=== PATIENT | female | born 1995 | race Hispanic/Latino ===

== ENCOUNTER 2021-08-17 17:47 | Inpatient (IN) | payer SELFPAY ==
[~2021-08-17] VITALS: Ht 157.5 cm; Wt 64.4 kg
[2021-08-17] MEDS ORDERED: KETOROLAC TROMETHAMINE 30 MG/ML VIAL IV STA (18:03)
[2021-08-17] MEDS ORDERED: KETOROLAC TROMETHAMINE 30 MG/ML VIAL ONE (18:15)
[2021-08-17 18:22] LABS: BASOPHILS # (AUTO) 0.1 (0.0-0.1); BASOPHILS % 0.3 % (0.0-1.0); EOSINOPHILS % 0.3 % (0.0-6.0); HEMATOCRIT 37.2 % (34.2-44.1); HEMOGLOBIN 12.3 g/dL (12.0-16.0); LYMPHOCYTES % 6.7 % (18.0-39.1); MEAN CORPUSCULAR HEMOGLOBIN 29.6 pg (28-32); MEAN CORPUSCULAR HGB CONC 33.1 g/dL (31-35); MEAN CORPUSCULAR VOLUME 89.6 fL (81-99); MONOCYTES # (AUTO) 0.7 (0.2-0.8); MONOCYTES % 4.5 % (4.4-11.3); NEUTROPHILS # (AUTO) 13.2 (2.1-6.9); PLATELET COUNT 337 x10e3/uL (140-360); RED BLOOD COUNT 4.15 x10e6/uL (3.6-5.1); RED CELL DISTRIBUTION WIDTH 12.7 % (11.7-14.4)
[2021-08-17 18:27] LABS: CLARITY,URINE CLEAR (CLEAR); COLOR,URINE YELLOW (YELLOW)
[2021-08-17 18:28] LABS: KETONES,URINE 2+ (NEGATIVE); LEUKOCYTE ESTERASE ,URINE NEGATIVE (NEGATIVE); NITRITE,URINE NEGATIVE (NEGATIVE); PROTEIN,URINE DIPSTICK NEGATIVE (NEGATIVE); URINE UROBILINOGEN 0.2 mg/dL (0.2 - 1)
[2021-08-17 18:38] LABS: ALBUMIN 4.1 g/dL (3.5-5.0); ALBUMIN/GLOBULIN RATIO 1.2 (0.8-2.0); ANION GAP 10.3 mmol/L (8-16); CALCIUM 8.7 mg/dL (8.4-10.2); CREATININE, SERUM 0.66 mg/dL (0.57-1.11); POTASSIUM 3.3 mmol/L (3.5-5.1)
[2021-08-17 18:42] LABS: BACTERIA,URINE FEW /HPF; EPITHELIAL CELLS,URINE FEW /LPF; RBC,URINE 0-5 /HPF (0-5); WBC,URINE (MAN) 0-5 /HPF (0-5)
[2021-08-17] MEDS ORDERED: PIPERACILLIN/TAZOBACTAM 3.375 GM in SODIUM CHLORIDE 0.9% 50ML 50 ML IV STA (18:42)
[2021-08-17] MEDS ORDERED: IOPAMIDOL 370 MG/ML 200 ML INFUS..BTL INJ ONE (19:03)
[2021-08-17] MEDS ORDERED: SODIUM CHLORIDE 0.9% 50ML 50 ML ONE (19:03)
[2021-08-17] MEDS ORDERED: Morphine 4mg Syringe 4 MG/ML INJ IV PRN (19:45)
[2021-08-17] MEDS ORDERED: ONDANSETRON HCL INJ 2MG/ML 2ML 2 MG/ML VIAL IV PRN (19:45)
[2021-08-17] MEDS: SODIUM CHLORIDE 0.9% 1000ML 1,000 ML IV SCH (20:30)
[2021-08-17 22:00] VITALS: BP 100/60
[2021-08-18] VITALS (9 sets, daily range): BP systolic 96–132; BP diastolic 63–81
[2021-08-18] MEDS: KETOROLAC TROMETHAMINE 30 MG/ML VIAL IV PRN ×2 (02:26→09:19)
[2021-08-18] MEDS: SODIUM CHLORIDE 0.9% 1000ML 1,000 ML IV SCH ×3 (05:40→13:47)
[2021-08-18 05:42] LABS: BASOPHILS % 0.4 % (0.0-1.0); EOSINOPHILS # (AUTO) 0.2 (0.0-0.4); LYMPHOCYTES # (AUTO) 2.1 (1.0-3.2); LYMPHOCYTES % 23.3 % (18.0-39.1); MEAN CORPUSCULAR HEMOGLOBIN 29.3 pg (28-32); MEAN CORPUSCULAR HGB CONC 32.4 g/dL (31-35); MEAN CORPUSCULAR VOLUME 90.7 fL (81-99); MONOCYTES # (AUTO) 0.7 (0.2-0.8); MONOCYTES % 7.8 % (4.4-11.3); NEUTROPHILS # (AUTO) 6.1 (2.1-6.9); NEUTROPHILS % 66.4 % (38.7-80.0); PLATELET COUNT 286 x10e3/uL (140-360); RED BLOOD COUNT 3.75 x10e6/uL (3.6-5.1); RED CELL DISTRIBUTION WIDTH 12.8 % (11.7-14.4)
[2021-08-18 06:12] LABS: ALBUMIN 3.4 g/dL (3.5-5.0); ALBUMIN/GLOBULIN RATIO 1.2 (0.8-2.0); ANION GAP 8.7 mmol/L (8-16); CREATININE, SERUM 0.63 mg/dL (0.57-1.11); POTASSIUM 3.7 mmol/L (3.5-5.1)
[2021-08-18 06:37] LABS: MAGNESIUM 2.1 MG/DL (1.3-2.1); PHOSPHORUS 4.1 MG/DL (2.3-4.7)
[2021-08-18] MEDS ORDERED: INFLUENZA VIRUS VAC SPLIT INJ 0.5 ML SYR IM SCH (10:00)
[2021-08-18] MEDS ORDERED: LIDOCAINE HCL 2% LOCAL INJ 5 ML SDV VIAL INJ ONE (12:17)
[2021-08-18] MEDS ORDERED: ROCURONIUM BROMIDE 10 MG/ML 5ML VIAL IV ONE (12:17)
[2021-08-18] MEDS ORDERED: PROPOFOL IV EMULSION 10 MG/ML 20 ML VIAL ONE (12:17)
[2021-08-18] MEDS ORDERED: SEVOFLURANE INHAL SOLN 250 ML PEN BTL ONE (12:17)
[2021-08-18] MEDS ORDERED: DEXAMETHASONE SOD PHOS INJ 4 MG/ML SDV ONE (12:17)
[2021-08-18] MEDS ORDERED: POVIDONE IODINE 0.05% 0.05 % ML PO ONE (12:17)
[2021-08-18] MEDS ORDERED: ONDANSETRON HCL INJ 2MG/ML 2ML 2 MG/ML VIAL ONE ×2 (12:17→19:45)
[2021-08-18] MEDS ORDERED: KETOROLAC TROMETHAMINE 30 MG/ML VIAL ONE (12:17)
[2021-08-18] MEDS ORDERED: BUPIVACAINE 0.25% 30ML SDV ONE (17:26)
[2021-08-18] MEDS ORDERED: MIDAZOLAM HCL 2 MG/2 ML VIAL ONE (17:35)
[2021-08-18] MEDS ORDERED: FENTANYL CITRATE/PF 100MCG/2 ML INJ ONE ×2 (17:35→19:42)
[2021-08-18] MEDS ORDERED: HYDROMORPHONE 1MG/1ML INJ ONE (20:05)
[2021-08-18] MEDS: Cefoxitin 1 GM in SODIUM CHLORIDE 0.9% 50ML 50 ML IV SCH (23:43)
[2021-08-18] MEDS: HYDROCODONE/APAP 7.5MG-325MG 1 EA TAB PO PRN (23:43)
[2021-08-19] VITALS: BP 100/78
[2021-08-19 04:00] VITALS: BP 103/58
[2021-08-19] MEDS: Cefoxitin 1 GM in SODIUM CHLORIDE 0.9% 50ML 50 ML IV SCH ×2 (05:28→12:28)
[2021-08-19 05:47] LABS: BASOPHILS % 0.1 % (0.0-1.0); HEMATOCRIT 33.2 % (34.2-44.1); HEMOGLOBIN 10.9 g/dL (12.0-16.0); LYMPHOCYTES # (AUTO) 0.7 (1.0-3.2); MEAN CORPUSCULAR HEMOGLOBIN 29.4 pg (28-32); MEAN CORPUSCULAR HGB CONC 32.8 g/dL (31-35); MEAN CORPUSCULAR VOLUME 89.5 fL (81-99); MONOCYTES # (AUTO) 0.2 (0.2-0.8); MONOCYTES % 2.2 % (4.4-11.3); NEUTROPHILS # (AUTO) 8.8 (2.1-6.9); NEUTROPHILS % 90.4 % (38.7-80.0); PLATELET COUNT 302 x10e3/uL (140-360); RED BLOOD COUNT 3.71 x10e6/uL (3.6-5.1); RED CELL DISTRIBUTION WIDTH 12.4 % (11.7-14.4)
[2021-08-19] MEDS: HYDROCODONE/APAP 7.5MG-325MG 1 EA TAB PO PRN (05:52)
[2021-08-19] MEDS: SODIUM CHLORIDE 0.9% 1000ML 1,000 ML IV SCH (05:54)
[2021-08-19 06:16] LABS: ANION GAP 11.4 mmol/L (8-16); CALCIUM 8.3 mg/dL (8.4-10.2); CREATININE, SERUM 0.57 mg/dL (0.57-1.11); POTASSIUM 4.4 mmol/L (3.5-5.1)
[2021-08-19 08:10] VITALS: BP 105/63
[2021-08-19 08:24] VITALS: BP 105/63
[2021-08-19 11:35] VITALS: BP 110/75
== END 2021-08-19 14:20 | disposition home or self-care (01) | DRG 343 ==
LOC: ER 18:04 → ERHOLD 20:08 → MED/SURG 23:06
PROVIDERS: ADMIT Surgery; ATTEND Surgery
PROC: 0DTJ4ZZ Resection of Appendix, Percutaneous Endoscopic Approach (ICD-10-PCS; principal; 2021-08-18 17:50)
DX: K35.80 Unspecified acute appendicitis (principal); Z20.822 Contact with and (suspected) exposure to COVID-19
CPT/HCPCS: 36415; 71045; 74177; 80048; 80053; 81001; 83605; 83735; 84100; 84702; 85025; 87040; 88304; 93005; 94799; 96360; 99284; C1766; J0694; J1100; J1170; J1885; J2001; J2250; J2405; J2543; J3010; J7030; Q9967; U0002